=== PATIENT | male | born 1990 | race Two or more races ===

== ENCOUNTER 2018-03-27 18:58 | Emergency (ER) | payer SELFPAY ==
[~2018-03-27] VITALS: Ht 170.2 cm; Wt 99.8 kg
[~2018-03-27 18:58] MED LIST: IBUPROFEN600 MG PO; NKM; TRAMADOL HCL50 MG ORAL
--- NOTE | 2018-03-27 19:32 | Emergency Room Report ---
History of Present Illness General Chief Complaint: Gastrointestinal Bleed Source: Patient Present Illness HPI Patient presents with bleeding hemorrhoid. He was referred to a surgeon but hasn't had the time. Passing some blood clots. Pain rated at 6/10. This is an intermittent problem. He has used Anusol HC suppositories in the past. He denies hard stools or straining. He does spend time on the toilet. He says it feels like a bump that goes back into the rectum. No current medications. Hard to quantify amount of blood. No fevers, abdominal pain, NV, dysuria, rashes, dizziness. No major mediccal problems. Not taking opiates (had tramadol 2014 for wrist sprain). Allergies: Coded Allergies: PENICILLINS (Verified Allergy, Intermediate, Rash, 11/05/12) Patient History Past Medical History: see triage record Social History: Reports: smoking Social History Narrative banker Reviewed Nursing Documentation: PMH: Agreed; PSxH: Agreed Nursing Documentation-PMH Past Medical History: No Stated History Hx Cardiac Problems: No Hx Hypertension: Yes Hx Pacemaker: No Hx Asthma: No Hx COPD: No Hx Diabetes: No Hx Cancer: No Hx Gastrointestinal Problems: No Hx Dialysis: No Hx Neurological Problems: No Hx Cerebrovascular Accident: No Hx Seizures: Yes - AT 3 YEARS OLD Physical Exam Vital Signs Date Time Temp Pulse Resp B/P (MAP) Pulse Ox O2 Delivery O2 Flow Rate FiO2 03/27/18 19:05 97.9 94 18 156/100 98 Room Air Medical Decision Making Diagnostic Impression: Primary Impression: Hemorrhoid Qualified Codes: K64.1 - Second degree hemorrhoids ER Course Patient with rectal bleeding and h/o hemorrhoids. DDX: hemorrhoid, fissure, proctitis, rectal abscess. Exam c/w thrombosed hemorrhoid. No evidence of infection. Consideration for lancing here, however, it is not external and small. Local care is indicated. No labs indicated as VS stable. Advised patient that he needs to follow up with the surgeon or a verification clerk. No need for stool softener. Advised to minimize time on toilet. Patient stable for outpatient observation and treatment. Last Vital Signs Date Time Temp Pulse Resp B/P (MAP) Pulse Ox O2 Delivery O2 Flow Rate FiO2 03/27/18 21:26 80 14 03/27/18 21:26 98.0 115/75 99 Room Air Status: unchanged Disposition: HOME, SELF-CARE Condition: Stable Scripts Hydrocortisone Acetate* (ANUSOL-HC*) 25 Mg Supp.rect 1 SUPP RECTAL TWICE A DAY, #14 SUPP Prov: Eleazar Hurley MD 03/27/18 Benzocaine (AMERICAINE) 28 Gm Oint...g. 1 APPLIC TP BID PRN for For Pain, #28 GM 1 Refill Prov: Eleazar Hurley MD 03/27/18 Referrals: NOT CHOSEN IPA/,REFERRING (PCP) Eleazar Hurley MD Mar 27, 2018 19:32
[2018-03-27] MEDS ORDERED: AMERICAINE28 G1 TP (19:36)
[2018-03-27] MEDS ORDERED: ANUSOL-HC25 MG RECTAL (19:36)
[2018-03-27 21:26] VITALS: BP 115/75
== END 2018-03-27 21:30 | disposition home or self-care (01) ==
LOC: EMR 19:28
DX: K64.1 Second degree hemorrhoids (principal); I10 Essential (primary) hypertension; Z88.0 Allergy status to penicillin
CPT/HCPCS: 99283

== ENCOUNTER 2018-07-07 11:52 | Emergency (ER) | payer SELFPAY ==
[~2018-07-07] VITALS: Ht 170.2 cm; Wt 113.4 kg
[~2018-07-07 11:52] MED LIST changes: +AMERICAINE28 G1 TP; +ANUSOL-HC25 MG RECTAL
[2018-07-07] MEDS ORDERED: LOSARTAN-HCTZ1 EACH ORAL (12:02)
--- NOTE | 2018-07-07 12:12 | Emergency Room Report ---
History of Present Illness General Chief Complaint: Flu Like Symptoms Source: Patient Present Illness HPI 28-year-old male with no significant past medical history here complaining of 4 days of generalized body aches, chills, and one day of cough. Patient reports that 4 days ago he had irritation of the throat but no longer is complaining of sore throat. Denies congestion, ear pain, SOB, wheezing, chest pain, palpitation, abdominal pain nausea vomiting. He has been taking ibuprofen for symptom relief. Complains of neck soreness, denies stiffness of the neck. Denies headache and photophobia.Effexor denies recent travel and sick contact Allergies: Coded Allergies: PENICILLINS (Verified Allergy, Intermediate, Rash, 11/05/12) Patient History Past Medical History: see triage record Past Surgical History: unable to obtain Pertinent Family History: none Immunizations: UTD Reviewed Nursing Documentation: PMH: Agreed; PSxH: Agreed Nursing Documentation-PMH Hx Cardiac Problems: No Hx Hypertension: Yes Hx Pacemaker: No Hx Asthma: No Hx COPD: No Hx Diabetes: No Hx Cancer: No Hx Gastrointestinal Problems: No Hx Dialysis: No Hx Neurological Problems: No Hx Cerebrovascular Accident: No Hx Seizures: No Review of Systems All Other Systems: negative except mentioned in HPI Physical Exam Vital Signs Date Time Temp Pulse Resp B/P (MAP) Pulse Ox O2 Delivery O2 Flow Rate FiO2 07/07/18 11:59 98.4 106 17 139/88 97 Room Air Sp02 EP Interpretation: reviewed, normal General Appearance: normal inspection, well appearing, no apparent distress, alert Head: normocephalic, atraumatic Eyes: bilateral eye normal inspection, bilateral eye PERRL ENT: normal ENT inspection, normal pharynx, TMs + canals normal Neck: normal inspection, full range of motion, supple, no meningismus Respiratory: normal inspection, chest non-tender, lungs clear, no rhonchi, no wheezing Cardiovascular #1: normal inspection, no edema, no murmur, normal capillary refill Gastrointestinal: normal inspection, soft Rectal: deferred Genitourinary: no CVA tenderness Musculoskeletal: normal inspection, back normal Neurologic: normal inspection, alert, oriented x3 Psychiatric: normal inspection, judgement/insight normal Skin: normal inspection, normal color, no rash, warm/dry Lymphatic: normal inspection, no adenopathy Medical Decision Making PA Attestation all diagnosis and treatment is reviewed and discussed with my supervising physician Dr. Mathew Diagnostic Impression: Primary Impression: Influenza-like symptoms Additional Impression: URI (upper respiratory infection) ER Course 28-year-old male with no significant past medical history here complaining of 4 days of generalized body aches, chills, and one day of cough. Patient reports that 4 days ago he had irritation of the throat but no longer is complaining of sore throat. Denies congestion, ear pain, SOB, wheezing, chest pain, palpitation, abdominal pain nausea vomiting. He has been taking ibuprofen for symptom relief. Complains of neck soreness, denies stiffness of the neck. Denies headache and photophobia.Effexor denies recent travel and sick contact Ddx considered but are not limited to strep pharyngitis, influenza, upper respiratory infection, meningitis Vital signs: are WNL, pt. is afebrile H&PE are most consistent with upper respiratory infection and flulike symptoms ORDERS: ibuprofen, Phenergan DM ED INTERVENTIONS: None required at this time. DISCHARGE: At this time pt. is stable for d/c to home. Will provide printed patient care instructions, and any necessary prescriptions. Care plan and follow up instructions have been discussed with the patient prior to discharge. since it has been more in 48 hours of the onset of symptoms Tamiflu is not indicated if any new symptoms, such as 10 out of 10 headache, photophobia, neck stiffness return to the emergency room Last Vital Signs Date Time Temp Pulse Resp B/P (MAP) Pulse Ox O2 Delivery O2 Flow Rate FiO2 07/07/18 11:59 98.4 106 17 139/88 97 Room Air Disposition: HOME, SELF-CARE Condition: Stable Scripts Ibuprofen* (MOTRIN*) 600 Mg Tablet 600 MG ORAL Q8H PRN for For Pain, #30 TAB 0 Refills Prov: DenismogShankar inman PA 07/07/18 D-Methorphan Hb/Prometh Hcl* (PROMETHAZINE-DM SYRUP*) 118 Ml Syrup 5 ML ORAL Q6H PRN for For Cough, #120 ML 0 Refills Prov: Shankar Barrios PA 07/07/18 Patient Instructions: Upper Respiratory Infection, Adult, [id number] Additional Instructions: medications are TheraFlu, if stiff neck, 10 out of 10 headache, and photophobia return to the emergency room Shankar Barrios Jul 07, 2018 12:12
[2018-07-07] MEDS ORDERED: PROMETHAZINE-D118 ML ORAL (12:15)
[2018-07-07] MEDS ORDERED: IBUPROFEN600 MG ORAL (12:15)
--- NOTE | 2018-07-07 12:17 | NUR ---
ED Nurse Note: Pt walked in to ER c/o general bodyache for 4 days pain level 5/10. pt aao x 4 calm and cooperative. skin intact. no coughing during assessment and denied chest pain.
--- NOTE | 2018-07-07 12:19 | NUR ---
ED Nurse Note: PT. AAOX4. AMBULATORY PT. C/O BODYACHES AND FEVER X4. 98.5-TEMP. TOOK IBUPROFEN 200MG @ 1100
[2018-07-07 12:25] VITALS: BP 139/88
--- NOTE | 2018-07-07 12:27 | NUR ---
ED Nurse Note: Pt was cleared to be discharged by ERPA. pt received prescriptions and discharge instruction. pt verbalized understanding. id band was removed. pt ambulated to be discharged.
== END 2018-07-07 12:20 | disposition home or self-care (01) ==
LOC: EMR 12:15
DX: J11.1 Influenza due to unidentified influenza virus with other respiratory manifestations (principal); J06.9 Acute upper respiratory infection, unspecified; I10 Essential (primary) hypertension; Z88.0 Allergy status to penicillin
CPT/HCPCS: 99282

== ENCOUNTER 2019-03-16 13:09 | Emergency (ER) | payer BC ==
[~2019-03-16] VITALS: Ht 170.2 cm; Wt 95.3 kg
[~2019-03-16 13:09] MED LIST changes: +IBUPROFEN600 MG ORAL; +LOSARTAN-HCTZ1 EACH ORAL; +PROMETHAZINE-D118 ML ORAL
--- NOTE | 2019-03-16 14:06 | NUR ---
ER Nurse Note: Patient walked in to ER from home due to Lt knee pain 12/04. per pt, he was running last night and heard popping sound and pain started since then. Patient alert and oriented x4 and amulatory with crutches. Skin clean and intact. Calm and cooperative. No acute distress noted at this time.
--- NOTE | 2019-03-16 14:32 | Emergency Room Report ---
History of Present Illness General Chief Complaint: Lower Extremity Injury Source: Patient Present Illness HPI Patient presents with complaints of left knee pain Reports ongoing since last night initially reported to me 2 hours ago Patient however reports that he was running and essentially felt discomfort to the back of the knee and a buckling sensation and also pain to the medial aspect of the knee area Pain is worse with walking denies any pain to the ankle or the calf denies any pelvic pain Denies any fall to the ground or other trauma Allergies: Coded Allergies: PENICILLINS (Verified Allergy, Intermediate, Rash, 11/05/12) Patient History Past Medical History: see triage record Reviewed Nursing Documentation: PMH: Agreed; PSxH: Agreed Nursing Documentation-PMH Past Medical History: No History, Except For Hx Cardiac Problems: No Hx Hypertension: Yes Hx Pacemaker: No Hx Asthma: No Hx COPD: No Hx Diabetes: No Hx Cancer: No Hx Gastrointestinal Problems: No Hx Dialysis: No Hx Neurological Problems: No Hx Cerebrovascular Accident: No Hx Seizures: No Review of Systems All Other Systems: negative except mentioned in HPI Physical Exam Vital Signs Date Time Temp Pulse Resp B/P (MAP) Pulse Ox O2 Delivery O2 Flow Rate FiO2 03/16/19 14:02 97.5 80 17 147/100 (116) 98 Room Air Sp02 EP Interpretation: reviewed, normal General Appearance: well appearing, no apparent distress Head: normocephalic, atraumatic Eyes: bilateral eye PERRL, bilateral eye EOMI ENT: normal pharynx Neck: full range of motion, supple Respiratory: lungs clear Musculoskeletal: other - Patient using one crutch to ambulate, he has discomfort on the medial aspect of the knee also at the posterior aspect at the distal hamstring region, no laxity with anterior posterior draw patella is appropriately positioned no obvious effusion Neurologic: alert, oriented x3, responsive Skin: no rash Procedures Splinting Splinting : Consent: Verbal Location: Knee Pre-Made Type: knee immobilizer Pre-Proc Neuro Vasc Exam: normal Post-Proc Neuro Vasc Exam: normal Patient Tolerated: Well Complications: None Medical Decision Making Diagnostic Impression: Primary Impression: Knee sprain ER Course Given the patient's history and presentation x-ray imaging is initiated multiple differentials including but not limited to fracture soft tissue injury , Ligamental and musculoskeletal injuries are considered x-ray does not show any acute disease Patient is provided a knee immobilizer And is stable for close outpatient follow-up Other X-Ray Diagnostic Results Other X-Ray Diagnostic Results : X-Ray ordered: Knee # of Views/Limited Vs Complete: 3 View Indication: Pain EP Interpretation: Yes Interpretation: no dislocation, no soft tissue swelling, no fractures Impression: No acute disease Electronically Signed by: Femi Spivey DO Last Vital Signs Date Time Temp Pulse Resp B/P (MAP) Pulse Ox O2 Delivery O2 Flow Rate FiO2 03/16/19 14:02 97.5 80 17 147/100 (116) 98 Room Air Status: improved Disposition: HOME, SELF-CARE Condition: Improved Scripts Ibuprofen* (MOTRIN*) 600 Mg Tablet 600 MG ORAL THREE TIMES A DAY, #20 TAB 0 Refills Prov: Femi Spivey DO 03/16/19 Referrals: NOT CHOSEN [facility]/MD,REFERRING (PCP) Additional Instructions: Patient is provided with the discharge instructions notified to follow up with primary doctor in the next 2-3 days otherwise return to the er with any worsening symptoms. Please note that this report is being documented using [employer] technology. This can lead to erroneous entry secondary to incorrect interpretation by the dictating instrument. Femi Spivey DO Mar 16, 2019 14:32
[2019-03-16] MEDS ORDERED: IBUPROFEN600 MG ORAL (14:59)
--- NOTE | 2019-03-16 15:00 | NUR ---
ED Nurse Note: knee immobilizer applied on Lt knee.
--- NOTE | 2019-03-16 15:10 | NUR ---
ED Nurse Note: Pt cleared by health care Provider for discharge after knee immobilizer applied on Lt knee. DC instructions was given and explained to pt and verbalized understanding of teachings. All medical deviecs such as ID band removed. Pt is AAO x4, ambulatory and left with all personal belongings.
[2019-03-16 15:20] VITALS: BP 136/98
--- NOTE | 2019-03-17 13:03 | Diagnostic Imaging Report ---
Indications: Trauma, pain Technique: Three views of the left knee Comparison: None Findings: No acute fractures. No dislocations. Joint spaces are preserved. No radiopaque foreign body. Normal mineralization. Impression: No acute process
== END 2019-03-16 15:10 | disposition home or self-care (01) ==
LOC: EMR 14:00
DX: S83.92XA Sprain of unspecified site of left knee, initial encounter (principal); Z88.0 Allergy status to penicillin; I10 Essential (primary) hypertension; X58.XXXA Exposure to other specified factors, initial encounter; Y93.02 Activity, running; Y92.9 Unspecified place or not applicable
CPT/HCPCS: 29505; 99291